=== PATIENT | female | born 2000 | race Caucasian/White ===

== ENCOUNTER 2024-09-26 13:56 | Observation (INO) ==
[2024-09-26] MEDS: D5 LR 1,000 ML 1,000 ML IV SCH (15:08)
[2024-09-26] MEDS: ZOFRAN INJ 4 MG VIAL IVP PRN (15:15)
[2024-09-26 15:24] LABS: MEAN PLATELET VOLUME 8.6 fL (7.4-11.0); RED CELL DISTRIBUTION WIDTH 13.4 % (11.6-16.5)
[2024-09-26 15:39] LABS: CREATININE 0.48 mg/dL (0.55-1.02); eGFR NON BLACK RACES > 60 (>60)
[2024-09-26] MEDS ORDERED: CONSULT PHARMACY - POTASSIUM & MAGNESIUM XX SCH (16:00)
[2024-09-26] MEDS: POTASSIUM CHLORIDE INJ 40 MEQ VIAL 60 MEQ, MAGNESIUM SULFATE 50% INJ VIAL 2 G in NS 500... IV ONE (16:13)
[2024-09-26 16:22] LABS: BLOOD/HEMOGLOBIN,URINE 1+ (NEGATIVE); LEUKOCYTE ESTERASE ,URINE 2+ (NEGATIVE); NITRITES,URINE NEGATIVE (NEGATIVE)
[2024-09-26 16:24] LABS: APPEARANCE,URINE SLIGHTLY HAZY (CLEAR)
[2024-09-26 16:28] LABS: SQUAMOUS EPITHELIAL CELL,UR MODERATE /HPF (NEGATIVE)
[2024-09-26] MEDS: ANCEF VIAL 1 GRAM 1 G in NS 100 ML IV 100 ML IV SCH (18:40)
[2024-09-27] MEDS: NS 500 ML IV 500 ML IV ONE (05:38)
[2024-09-27 06:09] LABS: COR CA(FOR HYPOALB) 9.4 mg/dL (8.5-10.1); COR NA(FOR HYPERGLY) 137 mmol/L (136-145); CREATININE 0.38 mg/dL (0.55-1.02); eGFR NON BLACK RACES > 60 (>60)
[2024-09-27] MEDS ORDERED: D5 LR IV SCH (09:00)
[2024-09-27] MEDS ORDERED: MVI IV SCH (09:00)
[2024-09-27] MEDS ORDERED: MVI INJ (ADULT) IV SCH (09:00)
[2024-09-27] MEDS: PREDNISONE TAB 10 MG PO SCH (09:19)
--- NOTE | 2024-09-27 09:37 | PCM.PROG ---
Progress Note Progress Note for Day of Date of Exam: 09/27/24 Subjective Subjective: Patient states that she was able to keep down a little bit of Jell-O last evening. She reports having a little bit of diffuse abdominal pain in the lower abdomen. Reports no fever or chills. Past Medical Family Social History Past Med/Fam/Surg Hx: No changes since H&P Allergies: Allergies No Known Allergies Allergy (Verified 09/26/24 13:18) Review of Systems ROS: No change since H&P Vital Signs and I&O's Vital Signs: Vital Signs Temperature 98.0 F Temperature 97.9 F Pulse Rate [Bilateral Radial] 73 Pulse Rate [Bilateral Radial] 69 Respiratory Rate 19 Respiratory Rate 21 Blood Pressure [Left Arm] 96/60 Blood Pressure [Left Arm] 105/55 O2 Sat by Pulse Oximetry 97 O2 Sat by Pulse Oximetry 98 Intake and Output: Intake & Output 09/24/24 09/25/24 09/26/24 09/27/24 23:59 23:59 23:59 23:59 Intake Total 1384 / 1384 1006 / 1006 Balance 1384 / 1384 1006 / 1006 Physical Exam Oriented: Normal Respiratory: Normal Cardiovascular: Normal Palpation: Normal Tenderness: Diffuse and Mild Skin: Normal Mood Description: Calm Affect: Normal Speech Pattern: Clear and Appropriate Laboratory and Diagnostics 09/26/24 15:01 09/27/24 05:10 Labs: Laboratory WBC 6.0 X10^3/uL (3.6-10.0) 09/26/24 15:01 RBC 4.69 X10^6/uL (3.5-5.4) 09/26/24 15:01 Hgb 13.7 g/dL (12.0-16.0) 09/26/24 15:01 Hct 41.2 % (36.0-47.0) 09/26/24 15:01 MCV 87.8 fL (80.0-100.0) 09/26/24 15:01 MCH 29.3 pg (27.0-34.0) 09/26/24 15:01 MCHC 33.4 g/dL (33.0-35.0) 09/26/24 15:01 RDW 13.4 % (11.6-16.5) 09/26/24 15:01 Plt Count 276 X10^3/uL (150.0-450.0) 09/26/24 15:01 MPV 8.6 fL (7.4-11.0) 09/26/24 15:01 Neut % (Auto) 72.5 % (42.0-75.0) 09/26/24 15:01 Lymph % (Auto) 18.8 % (21.0-51.0) L 09/26/24 15:01 [place] % (Auto) 8.0 % (0.0-13.0) 09/26/24 15:01 Eos % (Auto) 0.3 % (0.9-2.9) L 09/26/24 15:01 Baso % (Auto) 0.4 % (0.2-1.0) 09/26/24 15:01 Neut # (Auto) 4.4 x10^3/uL (2.2-4.8) 09/26/24 15:01 Lymph # (Auto) 1.1 X10^3/uL (1.3-2.9) L 09/26/24 15:01 [place] # (Auto) 0.5 x10^3/uL (0.3-0.8) 09/26/24 15:01 Eos # (Auto) 0.0 x10^3/uL (0.0-0.2) 09/26/24 15:01 Baso # (Auto) 0.0 X10^3/uL (0.0-0.1) 09/26/24 15:01 Absolute Nucleated RBC 0.0 /100WBC 09/26/24 15:01 Sodium 136 mmol/L (136-145) 09/26/24 15:01 Corrected Sodium TNP 09/26/24 15:01 Potassium 2.9 mmol/L (3.5-5.1) L* 09/26/24 15:01 Chloride 100 mmol/L (98-107) 09/26/24 15:01 Carbon Dioxide 28.9 mmol/L (21-32) 09/26/24 15:01 BUN 6 mg/dL (7-18) L 09/26/24 15:01 Creatinine 0.48 mg/dL (0.55-1.02) L 09/26/24 15:01 Est GFR (MDRD) Af Amer > 60 (>60) 09/26/24 15:01 Est GFR (MDRD) Non-Af > 60 (>60) 09/26/24 15:01 Glucose 79 mg/dL (65-99) 09/26/24 15:01 Calcium 9.0 mg/dL (8.5-10.1) 09/26/24 15:01 Corrected Calcium TNP 09/26/24 15:01 Total Bilirubin 0.80 mg/dL (0.2-1.0) 09/26/24 15:01 AST 99 Units/L (15-37) H 09/26/24 15:01 ALT 317 Units/L (12-78) H 09/26/24 15:01 Alkaline Phosphatase 68 Units/L (46-116) 09/26/24 15:01 Total Protein 7.1 g/dL (6.4-8.2) 09/26/24 15:01 Albumin 3.8 g/dL (3.4-5.0) 09/26/24 15:01 Globulin 3.3 g/dL (2.5-4.5) 09/26/24 15:01 Albumin/Globulin Ratio 1.2 Ratio (1.1-2.1) 09/26/24 15:01 Specimen Type Clean catch urine 09/26/24 16:05 Urine Color Dark yellow (YELLOW) 09/26/24 16:05 Urine Appearance Slightly hazy (CLEAR) 09/26/24 16:05 Urine pH 6.0 (5.0 - 8.0) 09/26/24 16:05 Ur Specific [place] 1.015 (1.000-1.030) 09/26/24 16:05 Urine Protein 2+ (NEGATIVE) 09/26/24 16:05 Urine Glucose (UA) Negative (NEGATIVE) 09/26/24 16:05 Urine Ketones 4+ (NEGATIVE) 09/26/24 16:05 Urine Blood 1+ (NEGATIVE) 09/26/24 16:05 Urine Nitrite Negative (NEGATIVE) 09/26/24 16:05 Urine Bilirubin Negative (NEGATIVE) 09/26/24 16:05 Urine Urobilinogen 2+ (NORMAL) 09/26/24 16:05 Ur Leukocyte Esterase 2+ (NEGATIVE) 09/26/24 16:05 Urine RBC 0-2 /HPF (0-3) 09/26/24 16:05 Urine WBC 10-20 /HPF (0-5) A 09/26/24 16:05 Ur Squamous Epith Cells Moderate /HPF (NEGATIVE) 09/26/24 16:05 Urine Bacteria 1+ /HPF (NEGATIVE) 09/26/24 16:05 Urine Mucus Many /HPF (NEGATIVE) 09/26/24 16:05 Ur Culture Indicated? Yes/culture set up 09/26/24 16:05 Plan (1) Hyperemesis gravidarum with metabolic disturbance, antepartum: Status: Acute Narrative Support Text: Patient will be given IV fluid support with antiemetics and has been started on a prednisone taper. Patient was reassured that we will make sure she is keeping down enough by mouth before her IV is discontinued. Diet can be advanced as tolerated to dry diet including toast crackers, and possibly banana, or mashed potato. Her potassium was corrected by IV replacement, and her liver enzymes have partially corrected on serial examination. Continue IV fluid support and give consideration to PPN versus TPN. See how patient responds to prednisone taper. (2) Urinary tract infection: Status: Acute Qualifiers: Urinary tract infection type: site unspecified Hematuria presence: [facility] hematuria Qualified Code(s): N39.0 - Urinary tract infection, site not specified Narrative Support Text: Patient had a urinary tract infection which was culture proven but was unable to keep the medicine down in order to treat the UTI so there is still evidence of UTI on her urinalysis. She is currently on IV Ancef to treat the UTI. A culture has been repeated.
[2024-09-27] MEDS: MILK OF MAGNESIA PO PRN (22:31)
[2024-09-27] MEDS: COLACE CAP 100 MG PO PRN (22:31)
--- NOTE | 2024-09-28 10:27 | PCM.PROG ---
Progress Note Progress Note for Day of Date of Exam: 09/28/24 Subjective Subjective: Patient states that she feels better today. She had a little bit of dizziness when trying to get out of bed. No vomiting episodes since she came to the hospital. Nausea has been relieved with Zofran. Tried some bread and was able to keep that down but had nausea later which was treated with Zofran. No bowel movement in the last 24 hours. Past Medical Family Social History Past Med/Fam/Surg Hx: No changes since H&P Allergies: Allergies No Known Allergies Allergy (Verified 09/26/24 13:18) Review of Systems ROS: No change since H&P Vital Signs and I&O's Vital Signs: Vital Signs Temperature 98.4 F Pulse Rate [Bilateral Radial] 65 Respiratory Rate 20 Blood Pressure [Left Arm] 103/61 O2 Sat by Pulse Oximetry 97 Intake and Output: Intake & Output 09/25/24 09/26/24 09/27/24 09/28/24 23:59 23:59 23:59 23:59 Intake Total 1384 / 1384 4458 / 4458 1076 / 1076 Balance 1384 / 1384 4458 / 4458 1076 / 1076 Physical Exam Oriented: Normal Respiratory: Normal Cardiovascular: Normal Tenderness: Diffuse and Mild Skin: Normal Mood Description: Calm Affect: Normal Speech Pattern: Clear and Appropriate Laboratory and Diagnostics 09/26/24 15:01 09/27/24 05:10 Labs: 09/26/24 16:05 Urine,Clean Catch Urine Culture - Final Strep Agalactiae - (Group B) Laboratory WBC 6.0 X10^3/uL (3.6-10.0) 09/26/24 15:01 RBC 4.69 X10^6/uL (3.5-5.4) 09/26/24 15:01 Hgb 13.7 g/dL (12.0-16.0) 09/26/24 15:01 Hct 41.2 % (36.0-47.0) 09/26/24 15:01 MCV 87.8 fL (80.0-100.0) 09/26/24 15:01 MCH 29.3 pg (27.0-34.0) 09/26/24 15:01 MCHC 33.4 g/dL (33.0-35.0) 09/26/24 15:01 RDW 13.4 % (11.6-16.5) 09/26/24 15:01 Plt Count 276 X10^3/uL (150.0-450.0) 09/26/24 15:01 MPV 8.6 fL (7.4-11.0) 09/26/24 15:01 Neut % (Auto) 72.5 % (42.0-75.0) 09/26/24 15:01 Lymph % (Auto) 18.8 % (21.0-51.0) L 09/26/24 15:01 [place] % (Auto) 8.0 % (0.0-13.0) 09/26/24 15:01 Eos % (Auto) 0.3 % (0.9-2.9) L 09/26/24 15:01 Baso % (Auto) 0.4 % (0.2-1.0) 09/26/24 15:01 Neut # (Auto) 4.4 x10^3/uL (2.2-4.8) 09/26/24 15:01 Lymph # (Auto) 1.1 X10^3/uL (1.3-2.9) L 09/26/24 15:01 [place] # (Auto) 0.5 x10^3/uL (0.3-0.8) 09/26/24 15:01 Eos # (Auto) 0.0 x10^3/uL (0.0-0.2) 09/26/24 15:01 Baso # (Auto) 0.0 X10^3/uL (0.0-0.1) 09/26/24 15:01 Absolute Nucleated RBC 0.0 /100WBC 09/26/24 15:01 Sodium 137 mmol/L (136-145) 09/27/24 05:10 Corrected Sodium 137 mmol/L (136-145) 09/27/24 05:10 Potassium 3.9 mmol/L (3.5-5.1) 09/27/24 05:10 Chloride 106 mmol/L (98-107) 09/27/24 05:10 Carbon Dioxide 27.1 mmol/L (21-32) 09/27/24 05:10 BUN 2 mg/dL (7-18) L 09/27/24 05:10 Creatinine 0.38 mg/dL (0.55-1.02) L 09/27/24 05:10 Est GFR (MDRD) Af Amer > 60 (>60) 09/27/24 05:10 Est GFR (MDRD) Non-Af > 60 (>60) 09/27/24 05:10 Glucose 119 mg/dL (65-99) H 09/27/24 05:10 Calcium 8.5 mg/dL (8.5-10.1) 09/27/24 05:10 Corrected Calcium 9.4 mg/dL (8.5-10.1) 09/27/24 05:10 Total Bilirubin 0.60 mg/dL (0.2-1.0) 09/27/24 05:10 AST 40 Units/L (15-37) H 09/27/24 05:10 ALT 199 Units/L (12-78) H 09/27/24 05:10 Alkaline Phosphatase 53 Units/L (46-116) 09/27/24 05:10 Total Protein 5.5 g/dL (6.4-8.2) L 09/27/24 05:10 Albumin 2.9 g/dL (3.4-5.0) L 09/27/24 05:10 Globulin 2.6 g/dL (2.5-4.5) 09/27/24 05:10 Albumin/Globulin Ratio 1.1 Ratio (1.1-2.1) 09/27/24 05:10 Specimen Type Clean catch urine 09/26/24 16:05 Urine Color Dark yellow (YELLOW) 09/26/24 16:05 Urine Appearance Slightly hazy (CLEAR) 09/26/24 16:05 Urine pH 6.0 (5.0 - 8.0) 09/26/24 16:05 Ur Specific [place] 1.015 (1.000-1.030) 09/26/24 16:05 Urine Protein 2+ (NEGATIVE) 09/26/24 16:05 Urine Glucose (UA) Negative (NEGATIVE) 09/26/24 16:05 Urine Ketones 4+ (NEGATIVE) 09/26/24 16:05 Urine Blood 1+ (NEGATIVE) 09/26/24 16:05 Urine Nitrite Negative (NEGATIVE) 09/26/24 16:05 Urine Bilirubin Negative (NEGATIVE) 09/26/24 16:05 Urine Urobilinogen 2+ (NORMAL) 09/26/24 16:05 Ur Leukocyte Esterase 2+ (NEGATIVE) 09/26/24 16:05 Urine RBC 0-2 /HPF (0-3) 09/26/24 16:05 Urine WBC 10-20 /HPF (0-5) A 09/26/24 16:05 Ur Squamous Epith Cells Moderate /HPF (NEGATIVE) 09/26/24 16:05 Urine Bacteria 1+ /HPF (NEGATIVE) 09/26/24 16:05 Urine Mucus Many /HPF (NEGATIVE) 09/26/24 16:05 Ur Culture Indicated? Yes/culture set up 09/26/24 16:05 Plan (1) Hyperemesis gravidarum with metabolic disturbance, antepartum: Status: Acute Narrative Support Text: Hospital day #2, 8-week with hyperemesis, improving. States that her appetite is better since starting the prednisone. Will consult with dietitian today to try to expand her food choices. Also counseled patient to have someone bring her food from home or from the grocery store, in order to expand her choices possibly including some fruit or some carbohydrates. She tried the clear protein shakes but did not like the taste. (2) Urinary tract infection: Status: Acute Qualifiers: Urinary tract infection type: site unspecified Hematuria presence: w ithout hematuria Qualified Code(s): N39.0 - Urinary tract infection, site not specified Narrative Support Text: Continue with IV antibiotic until the time of discharge.
[2024-09-28] MEDS ORDERED: TYLENOL SUPP 650 MG PR PRN (13:32)
[2024-09-28] MEDS: TYLENOL 500 MG TAB EXTRA STRENGTH PO PRN (14:18)
[2024-09-28 16:20] VITALS: BMI 23.8
--- NOTE | 2024-09-29 09:26 | W.DIS.FURT ---
Summary of Discharge Discharge Summary of Date Date of Exam: 09/29/24 Admission Date Date of Admission: 09/26/24 Admission Diagnosis Hospital Course: Is a 24-year-old, 2 para 1 currently at 8 weeks of gestation who had persistent nausea and vomiting unrelieved by oral medicine. Upon admission she had hypokalemia and liver enzyme changes. During her hospital stay she was given IV antiemetics, and started on a prednisone taper. She has had resolution of her vomiting with the Zofran, and her hypokalemia has been corrected. She shows improved appetite, and has been able to keep down some soup, and carbohydrates. Although reluctant to leave the hospital yesterday, patient states that she feels much better and would like to try to manage the condition with oral medicines at home. Patient is to resume her orally disintegrating ondansetron, and continue with the prednisone taper. She will take 20 mg grams a day for 3 days, followed by 10 mg grams a day for 3 days. Patient has follow- up in our office early next week. Vital Signs: Vital Signs (72 hours) 09/26/24 13:19 09/26/24 14:16 09/26/24 14:25 Temperature 97.7 F Pulse Rate [Bilateral Radial] 62 Respiratory Rate 19 Blood Pressure 118/85 Blood Pressure [Left Arm] 97/69 O2 Sat by Pulse Oximetry 99 Oxygen Delivery Method Room Air Room Air 09/26/24 16:00 09/26/24 19:00 09/26/24 20:00 Temperature 98.3 F 98.3 F Pulse Rate [Bilateral Radial] 75 81 Respiratory Rate 18 19 Blood Pressure Blood Pressure [Left Arm] 97/55 96/60 O2 Sat by Pulse Oximetry 100 97 Oxygen Delivery Method Room Air Room Air Room Air 09/26/24 23:21 09/27/24 04:00 09/27/24 07:00 Temperature 97.9 F 98.0 F Pulse Rate [Bilateral Radial] 69 73 Respiratory Rate 21 19 Blood Pressure Blood Pressure [Left Arm] 105/55 96/60 O2 Sat by Pulse Oximetry 98 97 Oxygen Delivery Method Room Air Room Air Room Air 09/27/24 07:41 09/27/24 12:00 09/27/24 16:00 Temperature 98.0 F 97.8 F 97.6 F Pulse Rate [Bilateral Radial] 72 65 60 Respiratory Rate 20 19 18 Blood Pressure Blood Pressure [Left Arm] 92/58 91/51 105/57 O2 Sat by Pulse Oximetry 99 99 99 Oxygen Delivery Method Room Air Room Air Room Air 09/27/24 19:00 09/27/24 20:00 09/27/24 23:59 Temperature 97.9 F 98.0 F Pulse Rate [Bilateral Radial] 83 82 Respiratory Rate 21 20 Blood Pressure Blood Pressure [Left Arm] 107/52 95/59 O2 Sat by Pulse Oximetry 99 100 Oxygen Delivery Method Room Air Room Air Room Air 09/28/24 00:00 09/28/24 04:00 09/28/24 07:00 Temperature 98.0 F 98.4 F Pulse Rate [Bilateral Radial] 82 65 Respiratory Rate 20 20 Blood Pressure Blood Pressure [Left Arm] 95/59 103/61 O2 Sat by Pulse Oximetry 100 97 Oxygen Delivery Method Room Air Room Air Room Air 09/28/24 08:00 09/28/24 12:00 09/28/24 14:18 Temperature 98.5 F 97.9 F Pulse Rate [Bilateral Radial] 68 65 Respiratory Rate 20 20 20 Blood Pressure Blood Pressure [Left Arm] 107/49 105/56 O2 Sat by Pulse Oximetry 97 99 Oxygen Delivery Method Room Air Room Air 09/28/24 15:26 09/28/24 19:00 09/28/24 19:18 Temperature 97.7 F Pulse Rate [Bilateral Radial] 87 Respiratory Rate 21 20 Blood Pressure Blood Pressure [Left Arm] 98/55 O2 Sat by Pulse Oximetry 98 Oxygen Delivery Method Room Air Room Air 09/28/24 20:00 09/29/24 00:00 09/29/24 04:00 Temperature 98.0 F 98.4 F 98.4 F Pulse Rate [Bilateral Radial] 77 61 61 Respiratory Rate 19 20 19 Blood Pressure Blood Pressure [Left Arm] 113/62 100/60 96/64 O2 Sat by Pulse Oximetry 98 98 99 Oxygen Delivery Method Room Air 09/29/24 07:00 Temperature Pulse Rate [Bilateral Radial] Respiratory Rate Blood Pressure Blood Pressure [Left Arm] O2 Sat by Pulse Oximetry Oxygen Delivery Method Room Air Labs: Laboratory Last Values WBC 6.0 X10^3/uL (3.6-10.0) 09/26/24 15:01 RBC 4.69 X10^6/uL (3.5-5.4) 09/26/24 15:01 Hgb 13.7 g/dL (12.0-16.0) 09/26/24 15:01 Hct 41.2 % (36.0-47.0) 09/26/24 15:01 MCV 87.8 fL (80.0-100.0) 09/26/24 15:01 MCH 29.3 pg (27.0-34.0) 09/26/24 15:01 MCHC 33.4 g/dL (33.0-35.0) 09/26/24 15:01 RDW 13.4 % (11.6-16.5) 09/26/24 15:01 Plt Count 276 X10^3/uL (150.0-450.0) 09/26/24 15:01 MPV 8.6 fL (7.4-11.0) 09/26/24 15:01 Neut % (Auto) 72.5 % (42.0-75.0) 09/26/24 15:01 Lymph % (Auto) 18.8 % (21.0-51.0) L 09/26/24 15:01 [place] % (Auto) 8.0 % (0.0-13.0) 09/26/24 15:01 Eos % (Auto) 0.3 % (0.9-2.9) L 09/26/24 15:01 Baso % (Auto) 0.4 % (0.2-1.0) 09/26/24 15:01 Neut # (Auto) 4.4 x10^3/uL (2.2-4.8) 09/26/24 15:01 Lymph # (Auto) 1.1 X10^3/uL (1.3-2.9) L 09/26/24 15:01 [place] # (Auto) 0.5 x10^3/uL (0.3-0.8) 09/26/24 15:01 Eos # (Auto) 0.0 x10^3/uL (0.0-0.2) 09/26/24 15:01 Baso # (Auto) 0.0 X10^3/uL (0.0-0.1) 09/26/24 15:01 Absolute Nucleated RBC 0.0 /100WBC 09/26/24 15:01 Sodium 137 mmol/L (136-145) 09/27/24 05:10 Corrected Sodium 137 mmol/L (136-145) 09/27/24 05:10 Potassium 3.9 mmol/L (3.5-5.1) 09/27/24 05:10 Chloride 106 mmol/L (98-107) 09/27/24 05:10 Carbon Dioxide 27.1 mmol/L (21-32) 09/27/24 05:10 BUN 2 mg/dL (7-18) L 09/27/24 05:10 Creatinine 0.38 mg/dL (0.55-1.02) L 09/27/24 05:10 Est GFR (MDRD) Af Amer > 60 (>60) 09/27/24 05:10 Est GFR (MDRD) Non-Af > 60 (>60) 09/27/24 05:10 Glucose 119 mg/dL (65-99) H 09/27/24 05:10 Calcium 8.5 mg/dL (8.5-10.1) 09/27/24 05:10 Corrected Calcium 9.4 mg/dL (8.5-10.1) 09/27/24 05:10 Total Bilirubin 0.60 mg/dL (0.2-1.0) 09/27/24 05:10 AST 40 Units/L (15-37) H 09/27/24 05:10 ALT 199 Units/L (12-78) H 09/27/24 05:10 Alkaline Phosphatase 53 Units/L (46-116) 09/27/24 05:10 Total Protein 5.5 g/dL (6.4-8.2) L 09/27/24 05:10 Albumin 2.9 g/dL (3.4-5.0) L 09/27/24 05:10 Globulin 2.6 g/dL (2.5-4.5) 09/27/24 05:10 Albumin/Globulin Ratio 1.1 Ratio (1.1-2.1) 09/27/24 05:10 Specimen Type Clean catch urine 09/26/24 16:05 Urine Color Dark yellow (YELLOW) 09/26/24 16:05 Urine Appearance Slightly hazy (CLEAR) 09/26/24 16:05 Urine pH 6.0 (5.0 - 8.0) 09/26/24 16:05 Ur Specific [place] 1.015 (1.000-1.030) 09/26/24 16:05 Urine Protein 2+ (NEGATIVE) 09/26/24 16:05 Urine Glucose (UA) Negative (NEGATIVE) 09/26/24 16:05 Urine Ketones 4+ (NEGATIVE) 09/26/24 16:05 Urine Blood 1+ (NEGATIVE) 09/26/24 16:05 Urine Nitrite Negative (NEGATIVE) 09/26/24 16:05 Urine Bilirubin Negative (NEGATIVE) 09/26/24 16:05 Urine Urobilinogen 2+ (NORMAL) 09/26/24 16:05 Ur Leukocyte Esterase 2+ (NEGATIVE) 09/26/24 16:05 Urine RBC 0-2 /HPF (0-3) 09/26/24 16:05 Urine WBC 10-20 /HPF (0-5) A 09/26/24 16:05 Ur Squamous Epith Cells Moderate /HPF (NEGATIVE) 09/26/24 16:05 Urine Bacteria 1+ /HPF (NEGATIVE) 09/26/24 16:05 Urine Mucus Many /HPF (NEGATIVE) 09/26/24 16:05 Ur Culture Indicated? Yes/culture set up 09/26/24 16:05 Reason For Visit: HYPEREMESIS OF Discharge Diagnosis All Active Problems (Updated 09/27/24 @ 09:34 by Nina Spence MD) Urinary tract infection (Acute) Hyperemesis gravidarum with metabolic disturbance, antepartum (Acute) related condition in first trimester (Acute) Nausea & vomiting (Acute) Plan of Treatment: Continue with present treatment and follow up plan. Pt is to keep follow up appointment as instructed and take medications as ordered. Discharge Medications Discharge Medications: No Known Allergies Allergy (Verified 09/26/24 13:18) Discharge Disposition Assessment: No distress noted. Discharge Plan Discharge Plan Hospital Course: Is a 24-year-old, 2 para 1 currently at 8 weeks of gestation who had persistent nausea and vomiting unrelieved by oral medicine. Upon admission she had hypokalemia and liver enzyme changes. During her hospital stay she was given IV antiemetics, and started on a prednisone taper. She has had resolution of her vomiting with the Zofran, and her hypokalemia has been corrected. She shows improved appetite, and has been able to keep down some soup, and carbohydrates. Although reluctant to leave the hospital yesterday, patient states that she feels much better and would like to try to manage the condition with oral medicines at home. Patient is to resume her orally disintegrating ondansetron, and continue with the prednisone taper. She will take 20 mg grams a day for 3 days, followed by 10 mg grams a day for 3 days. Patient has follow- up in our office early next week. Patient Disposition: 01 HOME, SELF-CARE Condition: Stable Health Concerns: Post Hospitalization: new medications and changes needed to prevent readmission or further decline. Pt educated and given instructions on all concerns. Care Plan Goals: Problem: Altered nutrition Goal: Nutrition deficit will be minimized or prevented. Instructions: Follow provided instructions. Follow up with primary physician as directed. Contact primary care physician or report to the closest Emergency Room if condition worsens. Plan of Treatment: Continue with present treatment and follow up plan. Pt is to keep follow up appointment as instructed and take medications as ordered. Assessment: No distress noted. Prescriptions: New prednisone 10 mg Tablet 20 mg PO DAILY 6 Days Qty: 12 0RF Continued Classic 28 mg iron- 800 mcg tablet 1 tab PO .q day MDD 1 90 Days Qty: 90 3RF ondansetron 4 mg tablet,disintegrating 4 mg PO Q8H PRN (Reason: nausea and vomiting) 30 Days Qty: 30 1RF Discontinued promethazine 12.5 mg tablet 12.5 mg PO Q6H PRN (Reason: nausea and vomiting) Qty: 30 2RF cephalexin 250 mg capsule 250 mg PO TID Orders to Discharge Patient Discharge Orders: Discharge (Routine); Ordered 09/29/24 Ordered By: Nina Spence Follow ups/Referrals Follow ups/Referrals: Nina Spence MD [Primary Care Provider, Obsetrics/Gynecology] - 10/03/24 3:00 pm Instructions Instructions: Urinary Tract Infection, Female, Hyperemesis Gravidarum, Nausea and Vomiting, Adult, [id number], [place] Diet Stand Alone Forms: Excuse From Work or School, Find Help Web Site, Post Hospital Follow Up Care Print Language: GREEK
[2024-09-29 09:55] VITALS: BP 101/53; PULSE 62; RESP 21; TEMP 98.8; O2SAT 98
== END 2024-09-29 11:15 | disposition home or self-care (01) ==
LOC: MED/SURG
PROVIDERS: ADMIT Obstetrics & Gynecology; ATTEND Obstetrics & Gynecology
DX: O23.31 Infections of other parts of urinary tract in pregnancy, first trimester; N39.0 Urinary tract infection, site not specified; Z3A.08 8 weeks gestation of pregnancy; Z16.23 Resistance to quinolones and fluoroquinolones; O21.1 Hyperemesis gravidarum with metabolic disturbance; R42 Dizziness and giddiness; B95.1 Streptococcus, group B, as the cause of diseases classified elsewhere

== ENCOUNTER 2024-10-16 15:43 | Observation (INO) ==
[2024-10-16 19:49] LABS: MEAN PLATELET VOLUME 7.9 fL (7.4-11.0); RED CELL DISTRIBUTION WIDTH 13.7 % (11.6-16.5)
[2024-10-16 20:01] LABS: CREATININE 0.48 mg/dL (0.55-1.02); eGFR NON BLACK RACES > 60 (>60)
[2024-10-16] MEDS: D5 LR 1,000 ML 1,000 ML IV ONE (20:22)
[2024-10-16] MEDS: DEXTROSE IV SCH (22:00)
[2024-10-16] MEDS: PEPCID 20 MG VIAL 20 MG in NS 50 ML IV 50 ML IV SCH (22:00)
[2024-10-16] MEDS: POTASSIUM CHLORIDE IV SCH (22:00)
[2024-10-16] MEDS: LACTATED RINGERS IV SCH (22:00)
[2024-10-17] MEDS: ZOFRAN INJ 4 MG VIAL IVP PRN (06:38)
--- NOTE | 2024-10-17 08:21 | DR.UPDATE ---
H&P UPDATE (1) Hyperemesis gravidarum with metabolic disturbance, antepartum: History and Physical Update: See notes from 10/16/2024 from the office. Review Yes Any changes to H&P?: No Patient was examined?: Yes
--- NOTE | 2024-10-17 08:27 | PCM.PROG ---
Progress Note Progress Note for Day of Date of Exam: 10/17/24 Subjective Subjective: Still having episodes of vomiting and nausea. Has been up out of bed with assistance to the bathroom. Has not tried to eat or drink anything yet. No new problems reported. No shortness of breath, although admits some chest pain. Past Medical Family Social History Allergies: Allergies No Known Allergies Allergy (Verified 10/16/24 15:16) Review of Systems ROS: No change since H&P Vital Signs and I&O's Vital Signs: Vital Signs Temperature 97.9 F Pulse Rate [Right Radial] 70 Respiratory Rate 18 Blood Pressure [Left Arm] 91/52 O2 Sat by Pulse Oximetry 96 Intake and Output: Intake & Output 10/14/24 10/15/24 10/16/24 10/17/24 23:59 23:59 23:59 23:59 Intake Total 1126 / 1126 866 / 866 Balance 1126 / 1126 866 / 866 Physical Exam Oriented: Other (Alert and oriented x 3) Respiratory: OTHER (Clear to auscultation bilaterally) Cardiovascular: Other (Heart regular rate and rhythm) Auscultation: Bowel Sounds: Other (Abdomen soft nontender, minimal bowel sounds present) Skin: Other (Skin turgor slightly improved) Psychiatric: Normal Mood Description: Calm Affect: Normal Speech Pattern: Clear and Appropriate Laboratory and Diagnostics 10/16/24 19:34 10/16/24 19:34 Labs: Laboratory WBC 5.4 X10^3/uL (3.6-10.0) 10/16/24 19:34 RBC 4.61 X10^6/uL (3.5-5.4) 10/16/24 19:34 Hgb 13.7 g/dL (12.0-16.0) 10/16/24 19:34 Hct 39.8 % (36.0-47.0) 10/16/24 19:34 MCV 86.3 fL (80.0-100.0) 10/16/24 19:34 MCH 29.7 pg (27.0-34.0) 10/16/24 19:34 MCHC 34.5 g/dL (33.0-35.0) 10/16/24 19:34 RDW 13.7 % (11.6-16.5) 10/16/24 19:34 Plt Count 300 X10^3/uL (150.0-450.0) 10/16/24 19:34 MPV 7.9 fL (7.4-11.0) 10/16/24 19:34 Neut % (Auto) 78.0 % (42.0-75.0) H 10/16/24 19:34 Lymph % (Auto) 16.9 % (21.0-51.0) L 10/16/24 19:34 [place] % (Auto) 4.6 % (0.0-13.0) 10/16/24 19:34 Eos % (Auto) 0.1 % (0.9-2.9) L 10/16/24 19:34 Baso % (Auto) 0.4 % (0.2-1.0) 10/16/24 19:34 Neut # (Auto) 4.2 x10^3/uL (2.2-4.8) 10/16/24 19:34 Lymph # (Auto) 0.9 X10^3/uL (1.3-2.9) L 10/16/24 19:34 [place] # (Auto) 0.2 x10^3/uL (0.3-0.8) L 10/16/24 19:34 Eos # (Auto) 0.0 x10^3/uL (0.0-0.2) 10/16/24 19:34 Baso # (Auto) 0.0 X10^3/uL (0.0-0.1) 10/16/24 19:34 Absolute Nucleated RBC 0.1 /100WBC 10/16/24 19:34 Sodium 138 mmol/L (136-145) 10/16/24 19:34 Corrected Sodium TNP 10/16/24 19:34 Potassium 3.5 mmol/L (3.5-5.1) 10/16/24 19:34 Chloride 102 mmol/L (98-107) 10/16/24 19:34 Carbon Dioxide 24.3 mmol/L (21-32) 10/16/24 19:34 BUN 7 mg/dL (7-18) 10/16/24 19:34 Creatinine 0.48 mg/dL (0.55-1.02) L 10/16/24 19:34 Est GFR (MDRD) Af Amer > 60 (>60) 10/16/24 19:34 Est GFR (MDRD) Non-Af > 60 (>60) 10/16/24 19:34 Glucose 82 mg/dL (65-99) 10/16/24 19:34 Calcium 9.2 mg/dL (8.5-10.1) 10/16/24 19:34 Corrected Calcium TNP 10/16/24 19:34 Total Bilirubin 1.00 mg/dL (0.2-1.0) 10/16/24 19:34 AST 18 Units/L (15-37) 10/16/24 19:34 ALT 31 Units/L (12-78) 10/16/24 19:34 Alkaline Phosphatase 52 Units/L (46-116) 10/16/24 19:34 Total Protein 7.2 g/dL (6.4-8.2) 10/16/24 19:34 Albumin 3.5 g/dL (3.4-5.0) 10/16/24 19:34 Globulin 3.7 g/dL (2.5-4.5) 10/16/24 19:34 Albumin/Globulin Ratio 0.9 Ratio (1.1-2.1) L 10/16/24 19:34 Plan (1) Hyperemesis gravidarum with metabolic disturbance, antepartum: Status: Acute Narrative Support Text: Patient again comes with persistent nausea and vomiting lasting greater than 48 hours. Compared to the last admission, she is less hypokalemic and her liver enzymes are currently normal as opposed to last time when they were elevated. Continue with antiemetics and IV fluid hydration, daily IV vitamins, and get dietitian consult. Progress diet when she has an appetite and is tolerated. Too early to consider discharge with episodes of vomiting continuing.
[2024-10-17] MEDS: PREDNISONE TAB 20 MG PO SCH (08:47)
[2024-10-17] MEDS: [UNRECOGNIZED DRUG - OTHER] IV SCH (08:58)
[2024-10-17] MEDS: MVI IV SCH (08:58)
[2024-10-17] MEDS: D5 LR IV SCH (08:58)
[2024-10-17] MEDS ORDERED: DEXTROSE IV SCH (09:00)
[2024-10-17] MEDS ORDERED: POTASSIUM CHLORIDE IV SCH (09:00)
[2024-10-17] MEDS ORDERED: LACTATED RINGERS IV SCH (09:00)
[2024-10-17] MEDS ORDERED: MVI INJ (ADULT) IV SCH (09:00)
[2024-10-17] MEDS ORDERED: MULTIVITAMIN IV SCH (09:00)
[2024-10-17] MEDS: NS 1,000 ML IV 1,000 ML ONE (09:15)
[2024-10-18 09:22] LABS: MEAN PLATELET VOLUME 8.7 fL (7.4-11.0); RED CELL DISTRIBUTION WIDTH 13.5 % (11.6-16.5)
--- NOTE | 2024-10-18 09:27 | PCM.PROG ---
Progress Note Progress Note for Day of Date of Exam: 10/18/24 Subjective Subjective: Still having episodes of nausea. Was able to keep down some clear liquids over the last 24 hours. No new complaints. Past Medical Family Social History Allergies: Allergies No Known Allergies Allergy (Verified 10/16/24 15:16) Review of Systems ROS: No change since H&P Vital Signs and I&O's Vital Signs: Vital Signs Temperature 98.0 F Temperature 98.2 F Pulse Rate [Right Radial] 70 Pulse Rate [Right Radial] 78 Respiratory Rate 18 Respiratory Rate 21 Blood Pressure [Left Arm] 87/52 Blood Pressure [Left Arm] 102/60 O2 Sat by Pulse Oximetry 100 O2 Sat by Pulse Oximetry 99 Intake and Output: Intake & Output 10/15/24 10/16/24 10/17/24 10/18/24 23:59 23:59 23:59 23:59 Intake Total 1126 / 1126 3273 / 3273 910 / 910 Balance 1126 / 1126 3273 / 3273 910 / 910 Physical Exam Oriented: Other (Alert and oriented x 3) Respiratory: OTHER (Clear to auscultation bilaterally) Cardiovascular: Other (Heart regular rate and rhythm) Auscultation: Bowel Sounds: Other (Abdomen soft nontender, minimal bowel sounds present) Skin: Other (Skin turgor slightly improved) Psychiatric: Normal Mood Description: Calm Affect: Normal Speech Pattern: Clear and Appropriate Laboratory and Diagnostics 10/16/24 19:34 10/16/24 19:34 Labs: Laboratory WBC 5.4 X10^3/uL (3.6-10.0) 10/16/24 19:34 RBC 4.61 X10^6/uL (3.5-5.4) 10/16/24 19:34 Hgb 13.7 g/dL (12.0-16.0) 10/16/24 19:34 Hct 39.8 % (36.0-47.0) 10/16/24 19:34 MCV 86.3 fL (80.0-100.0) 10/16/24 19:34 MCH 29.7 pg (27.0-34.0) 10/16/24 19:34 MCHC 34.5 g/dL (33.0-35.0) 10/16/24 19:34 RDW 13.7 % (11.6-16.5) 10/16/24 19:34 Plt Count 300 X10^3/uL (150.0-450.0) 10/16/24 19:34 MPV 7.9 fL (7.4-11.0) 10/16/24 19:34 Neut % (Auto) 78.0 % (42.0-75.0) H 10/16/24 19:34 Lymph % (Auto) 16.9 % (21.0-51.0) L 10/16/24 19:34 [place] % (Auto) 4.6 % (0.0-13.0) 10/16/24 19:34 Eos % (Auto) 0.1 % (0.9-2.9) L 10/16/24 19:34 Baso % (Auto) 0.4 % (0.2-1.0) 10/16/24 19:34 Neut # (Auto) 4.2 x10^3/uL (2.2-4.8) 10/16/24 19:34 Lymph # (Auto) 0.9 X10^3/uL (1.3-2.9) L 10/16/24 19:34 [place] # (Auto) 0.2 x10^3/uL (0.3-0.8) L 10/16/24 19:34 Eos # (Auto) 0.0 x10^3/uL (0.0-0.2) 10/16/24 19:34 Baso # (Auto) 0.0 X10^3/uL (0.0-0.1) 10/16/24 19:34 Absolute Nucleated RBC 0.1 /100WBC 10/16/24 19:34 Sodium 138 mmol/L (136-145) 10/16/24 19:34 Corrected Sodium TNP 10/16/24 19:34 Potassium 3.5 mmol/L (3.5-5.1) 10/16/24 19:34 Chloride 102 mmol/L (98-107) 10/16/24 19:34 Carbon Dioxide 24.3 mmol/L (21-32) 10/16/24 19:34 BUN 7 mg/dL (7-18) 10/16/24 19:34 Creatinine 0.48 mg/dL (0.55-1.02) L 10/16/24 19:34 Est GFR (MDRD) Af Amer > 60 (>60) 10/16/24 19:34 Est GFR (MDRD) Non-Af > 60 (>60) 10/16/24 19:34 Glucose 82 mg/dL (65-99) 10/16/24 19:34 Calcium 9.2 mg/dL (8.5-10.1) 10/16/24 19:34 Corrected Calcium TNP 10/16/24 19:34 Total Bilirubin 1.00 mg/dL (0.2-1.0) 10/16/24 19:34 AST 18 Units/L (15-37) 10/16/24 19:34 ALT 31 Units/L (12-78) 10/16/24 19:34 Alkaline Phosphatase 52 Units/L (46-116) 10/16/24 19:34 Total Protein 7.2 g/dL (6.4-8.2) 10/16/24 19:34 Albumin 3.5 g/dL (3.4-5.0) 10/16/24 19:34 Globulin 3.7 g/dL (2.5-4.5) 10/16/24 19:34 Albumin/Globulin Ratio 0.9 Ratio (1.1-2.1) L 10/16/24 19:34 RPR Nonreactive (NONREACTIVE) 10/18/24 05:22 Rubella IgG Antibody Negative (POSITIVE) A 10/17/24 15:30 Blood Type A POSITIVE 10/18/24 05:22 Antibody Screen Negative 10/18/24 05:22 Plan (1) Hyperemesis gravidarum with metabolic disturbance, antepartum: Status: Acute Narrative Support Text: Hospital day #2. Has started on prednisone taper. Plan discharge tomorrow morning. Continue with plan of care as outlined in orders.
[2024-10-18 09:48] LABS: COR CA(FOR HYPOALB) 9.6 mg/dL (8.5-10.1); CREATININE 0.38 mg/dL (0.55-1.02); eGFR NON BLACK RACES > 60 (>60)
[2024-10-18 10:18] VITALS: BMI 23.3
[2024-10-18] MEDS ORDERED: ZOFRAN ODT PO PRN (21:45)
[2024-10-19 03:53] VITALS: RESP 18; O2SAT 99
--- NOTE | 2024-10-19 08:32 | W.DIS.FURT ---
Summary of Discharge Discharge Summary of Date Date of Exam: 10/19/24 Admission Date Date of Admission: 10/16/24 Admission Diagnosis Hospital Course: Patient is a 24-year-old 2 para 1 who is currently experiencing hyperemesis with intractable nausea and vomiting not relieved by ondansetron. Patient did remark that this was different from her experience in the first where she did not have these problems. Patient was found to have 4+ ketonuria and low potassium however on this admission her liver enzymes were not elevated. She was given antiemetics and Solu-Medrol and started on a prednisone taper on hospital day #1. Yesterday the patient was starting to take more food by mouth and today she feels good enough to go home. Patient was encouraged to return to the hospital if she experiences persistent nausea and vomiting for 12 to 24 hours and not to wait until she gets more sick. Patient is encouraged to keep an office follow-up appointment in the next 1 to 2 weeks and return to the emergency room if she has intractable nausea and vomiting. Vital Signs: Vital Signs (72 hours) 10/16/24 15:17 10/16/24 19:15 10/16/24 19:15 Temperature Pulse Rate [Right Radial] Respiratory Rate Blood Pressure 138/73 Blood Pressure [Left Arm] O2 Sat by Pulse Oximetry Oxygen Delivery Method Room Air Room Air 10/16/24 20:00 10/17/24 00:00 10/17/24 04:00 Temperature 97.8 F 98.5 F 97.9 F Pulse Rate [Right Radial] 80 77 70 Respiratory Rate 21 18 18 Blood Pressure Blood Pressure [Left Arm] 110/64 88/54 91/52 O2 Sat by Pulse Oximetry 98 97 96 Oxygen Delivery Method Room Air Room Air Room Air 10/17/24 07:00 10/17/24 08:00 10/17/24 12:00 Temperature 97.7 F 97.6 F Pulse Rate [Right Radial] 65 64 Respiratory Rate 18 18 Blood Pressure Blood Pressure [Left Arm] 94/53 108/58 O2 Sat by Pulse Oximetry 100 98 Oxygen Delivery Method Room Air Room Air Room Air 10/17/24 16:00 10/17/24 19:00 10/17/24 20:00 Temperature 98.6 F 98.7 F Pulse Rate [Right Radial] 89 92 H Respiratory Rate 18 20 Blood Pressure Blood Pressure [Left Arm] 97/55 98/60 O2 Sat by Pulse Oximetry 97 98 Oxygen Delivery Method Room Air Room Air Room Air 10/18/24 00:00 10/18/24 04:00 10/18/24 07:00 Temperature 98.4 F 98.2 F Pulse Rate [Right Radial] 84 78 Respiratory Rate 18 21 Blood Pressure Blood Pressure [Left Arm] 92/64 102/60 O2 Sat by Pulse Oximetry 99 99 Oxygen Delivery Method Room Air Room Air Room Air 10/18/24 08:00 10/18/24 12:00 10/18/24 15:53 Temperature 98.0 F 98 F 98.3 F Pulse Rate [Right Radial] 70 73 78 Respiratory Rate 18 18 19 Blood Pressure Blood Pressure [Left Arm] 87/52 82/49 89/46 O2 Sat by Pulse Oximetry 100 100 98 Oxygen Delivery Method Room Air Room Air Room Air 10/18/24 17:21 10/18/24 18:52 10/18/24 20:00 Temperature 97.5 F L Pulse Rate [Right Radial] 69 Respiratory Rate 18 Blood Pressure Blood Pressure [Left Arm] 102/58 108/58 O2 Sat by Pulse Oximetry 98 Oxygen Delivery Method Room Air Room Air Labs: Laboratory Last Values WBC 4.3 X10^3/uL (3.6-10.0) 10/18/24 05:22 RBC 3.70 X10^6/uL (3.5-5.4) 10/18/24 05:22 Hgb 11.1 g/dL (12.0-16.0) L D 10/18/24 05:22 Hct 32.1 % (36.0-47.0) L 10/18/24 05:22 MCV 86.8 fL (80.0-100.0) 10/18/24 05:22 MCH 30.0 pg (27.0-34.0) 10/18/24 05:22 MCHC 34.5 g/dL (33.0-35.0) 10/18/24 05:22 RDW 13.5 % (11.6-16.5) 10/18/24 05:22 Plt Count 242 X10^3/uL (150.0-450.0) 10/18/24 05:22 MPV 8.7 fL (7.4-11.0) 10/18/24 05:22 Neut % (Auto) 48.8 % (42.0-75.0) 10/18/24 05:22 Lymph % (Auto) 42.2 % (21.0-51.0) 10/18/24 05:22 [place] % (Auto) 7.5 % (0.0-13.0) 10/18/24 05:22 Eos % (Auto) 0.4 % (0.9-2.9) L 10/18/24 05:22 Baso % (Auto) 1.1 % (0.2-1.0) H 10/18/24 05:22 Neut # (Auto) 2.1 x10^3/uL (2.2-4.8) L 10/18/24 05:22 Lymph # (Auto) 1.8 X10^3/uL (1.3-2.9) 10/18/24 05:22 [place] # (Auto) 0.3 x10^3/uL (0.3-0.8) 10/18/24 05:22 Eos # (Auto) 0.0 x10^3/uL (0.0-0.2) 10/18/24 05:22 Baso # (Auto) 0.0 X10^3/uL (0.0-0.1) 10/18/24 05:22 Absolute Nucleated RBC 0.2 /100WBC 10/18/24 05:22 Sodium 141 mmol/L (136-145) 10/18/24 05:22 Corrected Sodium TNP 10/18/24 05:22 Potassium 3.6 mmol/L (3.5-5.1) 10/18/24 05:22 Chloride 109 mmol/L (98-107) H 10/18/24 05:22 Carbon Dioxide 25.2 mmol/L (21-32) 10/18/24 05:22 BUN 1 mg/dL (7-18) L 10/18/24 05:22 Creatinine 0.38 mg/dL (0.55-1.02) L 10/18/24 05:22 Est GFR (MDRD) Af Amer > 60 (>60) 10/18/24 05:22 Est GFR (MDRD) Non-Af > 60 (>60) 10/18/24 05:22 Glucose 83 mg/dL (65-99) 10/18/24 05:22 Calcium 8.3 mg/dL (8.5-10.1) L 10/18/24 05:22 Corrected Calcium 9.6 mg/dL (8.5-10.1) 10/18/24 05:22 Total Bilirubin 0.50 mg/dL (0.2-1.0) 10/18/24 05:22 AST 16 Units/L (15-37) 10/18/24 05:22 ALT 23 Units/L (12-78) 10/18/24 05:22 Alkaline Phosphatase 36 Units/L (46-116) L 10/18/24 05:22 Total Protein 5.0 g/dL (6.4-8.2) L 10/18/24 05:22 Albumin 2.4 g/dL (3.4-5.0) L 10/18/24 05:22 Globulin 2.6 g/dL (2.5-4.5) 10/18/24 05:22 Albumin/Globulin Ratio 0.9 Ratio (1.1-2.1) L 10/18/24 05:22 RPR Nonreactive (NONREACTIVE) 10/18/24 05:22 Hep Bs Antigen Non-reactive (NON-REACTIVE) 10/17/24 15:30 Hepatitis C Antibody Non-reactive (NON-REACTIVE) 10/17/24 15:30 Rubella IgG Antibody Negative (POSITIVE) A 10/17/24 15:30 Blood Type A POSITIVE 10/18/24 05:22 Antibody Screen Negative 10/18/24 05:22 Reason For Visit: HYPERMESIS Discharge Date Discharge Date: 10/19/24 Discharge Diagnosis All Active Problems (Updated 09/27/24 @ 09:34 by Nina Spence MD) Urinary tract infection (Acute) Hyperemesis gravidarum with metabolic disturbance, antepartum (Acute) related condition in first trimester (Acute) Nausea & vomiting (Acute) Plan of Treatment: Continue with present treatment and follow up plan. Pt is to keep follow up appointment as instructed and take medications as ordered. Discharge Medications Discharge Medications: No Known Allergies Allergy (Verified 10/16/24 15:16) Discharge Plan Discharge Plan Hospital Course: Patient is a 24-year-old 2 para 1 who is currently experiencing hypere mesis with intractable nausea and vomiting not relieved by ondansetron. Patient did remark that this was different from her experience in the first where she did not have these problems. Patient was found to have 4+ ketonuria and low potassium however on this admission her liver enzymes were not elevated. She was given antiemetics and Solu-Medrol and started on a prednisone taper on hospital day #1. Yesterday the patient was starting to take more food by mouth and today she feels good enough to go home. Patient was encouraged to return to the hospital if she experiences persistent nausea and vomiting for 12 to 24 hours and not to wait until she gets more sick. Patient is encouraged to keep an office follow-up appointment in the next 1 to 2 weeks and return to the emergency room if she has intractable nausea and vomiting. Patient Disposition: 01 HOME, SELF-CARE Condition: Stable Health Concerns: Post Hospitalization: new medications and changes needed to prevent readmission or further decline. Pt educated and given instructions on all concerns. Care Plan Goals: Problem: Altered nutrition Goal: Nutrition deficit will be minimized or prevented. Instructions: Follow provided instructions. Follow up with primary physician as directed. Contact primary care physician or report to the closest Emergency Room if condition worsens. Plan of Treatment: Continue with present treatment and follow up plan. Pt is to keep follow up appointment as instructed and take medications as ordered. Prescriptions: New prednisone 10 mg tablet 20 mg PO DAILY 6 Days Qty: 12 0RF Rx Instructions: 20 mg x 3 days, then taper down to 10 mg daily ondansetron 4 mg Tablet,Disintegrating 4 mg PO Q8H PRN30 Days Qty: 60 1RF Continued ondansetron 4 mg tablet,disintegrating 4 mg PO Q8H PRN (Reason: nausea and vomiting) 30 Days Qty: 30 1RF No Action Classic 28 mg iron- 800 mcg tablet 1 tab PO .q day MDD 1 90 Days Qty: 90 3RF Orders to Discharge Patient Discharge Orders: Discharge (Routine); Ordered 10/19/24 Ordered By: Nina Spence Follow ups/Referrals Follow ups/Referrals: Nina Spence MD [Primary Care Provider, [facility]necology] - 1 WEEK Instructions Instructions: Hyperemesis Gravidarum, Clear Liquid Diet, Adult, Nausea and Vomiting, Adult, [id number], [place] Diet Stand Alone Forms: Find Help Web Site, Post Hospital Follow Up Care Print Language: FRENCH
[2024-10-19 08:36] VITALS: BP 101/57; PULSE 75; TEMP 97.6
== END 2024-10-19 09:45 | disposition home or self-care (01) ==
LOC: MED/SURG
PROVIDERS: ADMIT Obstetrics & Gynecology; ATTEND Obstetrics & Gynecology